=== PATIENT | female | born 1965 | race Caucasian/White ===

== ENCOUNTER 2023-02-25 05:51 | Emergency (ER) | payer OTHER ==
[~2023-02-25] VITALS: Ht 170.2 cm; Wt 72.6 kg
[2023-02-25 05:58] VITALS: BP 126/73; PULSE 80; RESP 18; TEMP 97.5; O2SAT 97
[2023-02-25] MEDS ORDERED: ONDANSETRON 4 MG ODT PO ONE (07:15)
[2023-02-25] MEDS ORDERED: MECLIZINE 25 MG TAB PO ONE (07:15)
[2023-02-25 08:17] LABS: BASOPHILS % (AUTO) 0.3 % (0.0-2.0); EOSINOPHILS % (AUTO) 0.7 % (0.0-4.0); HEMATOCRIT 40.2 % (36-48); HEMOGLOBIN 13.5 g/dL (12.0-16.0); LYMPHOCYTES # (AUTO) 1.9 K/uL (2.5-16.5); LYMPHOCYTES % (AUTO) 28.5 % (20.5-51.1); MEAN CORPUSCULAR HEMOGLOBIN 29 pg (27-31); MEAN CORPUSCULAR HGB CONC 34 g/dL (33-37); MEAN CORPUSCULAR VOLUME 86.9 fL (80-94); MONOCYTES # (AUTO) 0.5 K/uL (0.8-1.0); NEUTROPHILS # (AUTO) 4.2 K/uL (1.8-7.7); NEUTROPHILS % (AUTO) 63.5 % (42.2-75.2); PLATELET COUNT (AUTO) 234 K/uL (140-450); RED BLOOD CELL COUNT(AUTO) 4.62 MIL/uL (4.20-5.40); WHITE BLOOD COUNT (AUTO) 6.6 K/uL (4.8-10.8)
[2023-02-25 08:55] LABS: ALANINE AMINOTRANSFERASE 93 U/L (12-78); ALBUMIN 3.7 g/dL (3.4-5.0); ALKALINE PHOSPHATASE 102 U/L (50-136); ANION GAP 11.4 (8-16); ASPARTATE AMINOTRANSFERASE 30 U/L (15-37); CALCIUM 8.5 mg/dL (8.5-10.1); CARBON DIOXIDE 26.5 mmol/L (21-32); CHLORIDE 105 mmol/L (98-107); CREATININE 0.8 mg/dL (0.6-1.3); GFR ARICAN-AMERICAN 95 mL/min (>90); GFR NON ARICAN-AMERICAN 78 mL/min (>90); GLUCOSE 124 mg/dL (74-106); POTASSIUM 3.9 mmol/L (3.5-5.1); SODIUM SERUM 139 mmol/L (136-145); THYROID STIMULATING HORMONE 1.97 uIU/mL (0.34-3.74); TOTAL BILIRUBIN 0.3 mg/dL (0.0-1.0); TOTAL PROTEIN, SERUM 7.1 g/dL (6.4-8.2); UREA NITROGEN, BLOOD 11 mg/dL (7-18)
[2023-02-25 09:22] VITALS: O2SAT 97
[2023-02-25] MEDS ORDERED: ONDANSETRON 4 MG/2 ML VIAL IVP ONE (09:45)
[2023-02-25] MEDS ORDERED: NACL 0.9% 1,000 ML IV ONE (09:45)
[2023-02-25] MEDS ORDERED: ONDA-188 PO (11:12)
[2023-02-25] MEDS ORDERED: MECL-303 PO (11:12)
[2023-02-25 11:19] VITALS: BP 124/72; PULSE 71; RESP 18; TEMP 98.3; O2SAT 97
== END 2023-02-25 11:23 | disposition home or self-care (01) ==
LOC: MED 05:51
DX: R42 Dizziness and giddiness (principal); R11.0 Nausea; J45.909 Unspecified asthma, uncomplicated; Z79.899 Other long term (current) drug therapy
CPT/HCPCS: 36415; 70450; 70496; 70498; 80053; 84443; 84484; 85025; 93005; 96361; 96374; 99291; J2405; J7030; J8597; Q0162; Q9967